=== PATIENT | male | born 1965 | race Caucasian/White ===

== ENCOUNTER 2018-11-16 07:19 | Emergency (ER) | payer MEDICAID ==
[~2018-11-16] VITALS: Ht 188 cm; Wt 98.4 kg
--- NOTE | 2018-11-16 07:26 | NUR ---
BIB SELF FOR "L LEG PAIN x 2 DAYS RED AND SWOLLEN". DENIES TRAUMA/INJURY. TO ER BED 10, HOOKED TO MONITOR, PROVIDED W WARM BLANKET, AWAITING MD DE JESUS.
[2018-11-16 07:53] LABS: BASOPHILS % (AUTO) 0.7 % (0.0-2.0); EOSINOPHILS % (AUTO) 1.9 % (0.0-6.0); HEMATOCRIT 48 % (39-51); HEMOGLOBIN 16.3 g/dL (13.5-17.5); LYMPHOCYTES # (AUTO) 1.4 /CMM (0.8-4.8); LYMPHOCYTES % (AUTO) 25.9 % (20.0-44.0); MEAN CORPUSCULAR HGB CONC 34 g/dl (31.0-36.0); MEAN CORPUSCULAR VOLUME 88 fL (80-96); MONOCYTES # (AUTO) 0.6 /CMM (0.1-1.30); MONOCYTES % (AUTO) 11.4 % (2.0-12.0); NEUTROPHILS # (AUTO) 3.3 /CMM (1.8-8.9); NEUTROPHILS % (AUTO) 60.1 % (43.0-81.0); PLATELET COUNT (AUTO) 184 /CMM (150-450); WHITE BLOOD COUNT (AUTO) 5.5 K/uL (4.3-11.0)
[2018-11-16 08:02] LABS: CALCIUM, SERUM 8.9 mg/dL (8.5-10.1); POTASSIUM 3.9 mmol/L (3.5-5.1)
[2018-11-16 08:08] LABS: BILIRUBIN,DIRECT 0.1 mg/dL (0.0-0.2); BILIRUBIN,TOTAL 0.7 mg/dL (0.2-1.0); TOTAL PROTEIN, SERUM 7.9 g/dL (6.4-8.2)
--- NOTE | 2018-11-16 08:11 | NUR ---
US TECH AT BEDSIDE
[2018-11-16 08:47] VITALS: BP 132/80
--- NOTE | 2018-11-16 08:47 | NUR ---
Patient discharged to home in stable condition. Written and verbal after care instructions given. Patient verbalizes understanding of instruction.
== END 2018-11-16 08:48 | disposition home or self-care (01) ==
LOC: ER 07:23
DX: L03.116 Cellulitis of left lower limb (principal); Z60.2 Problems related to living alone
CPT/HCPCS: 36415; 80048-TC; 80076-TC; 85025-TC; 85730-TC; 93971-TC

== ENCOUNTER 2018-12-24 04:40 | Emergency (ER) | payer SELFPAY ==
[~2018-12-24] VITALS: Ht 188 cm; Wt 96.6 kg
[2018-12-24 04:46] VITALS: BP 132/88
--- NOTE | 2018-12-24 05:02 | NUR ---
PT BIBS. C/O "MARLENA HAD THIS RASH ON MY EYELIDS AND EARS FOR X10 DAYS" -SOB AOX4. AMBULATORY. -DIZZY
== END 2018-12-24 05:13 | disposition home or self-care (01) ==
LOC: ER 04:45
DX: L21.9 Seborrheic dermatitis, unspecified (principal); Z98.890 Other specified postprocedural states; Z60.2 Problems related to living alone

== ENCOUNTER → 2019-02-21 | Emergency (ER) | payer SELFPAY ==
[~2019-02-21] VITALS: Ht 188 cm; Wt 99.8 kg
[~2019-02-21] MED LIST: IBUPROFEN 400 MG TABLET ONE; IBUPROFEN 400 MG TABLET PO ONE
[2019-02-21 06:56] LABS: APPEARANCE,URINE SL CLOUDY (CLEAR); BILIRUBIN,URINE NEGATIVE (NEGATIVE); BLOOD, URINE NEGATIVE Ery/uL (NEGATIVE); COLOR,URINE YELLOW (YELLOW); KETONES,URINE NEGATIVE (NEGATIVE); LEUKOCYTE ESTERASE ,URINE TRACE (NEGATIVE); NITRITE, URINE NEGATIVE (NEGATIVE); PROTEIN,URINE NEGATIVE (NEGATIVE); UGLUCOSE NEGATIVE (NEGATIVE); UROBILINOGEN,URINE 0.2 EU/dL (0.2)
[2019-02-21 07:28] LABS: BACTERIA,URINE Rare /HPF (None Seen); RBC,URINE 0-2 /HPF (0-2); SQUAMOUS EPITHELIAL CELL,UR Rare /HPF (None Seen); WBC,URINE 20-30 /HPF (0-3)
--- NOTE | 2019-02-21 07:33 | NUR ---
PT REC'D TO ER C/O PAIN FLANK 12/29 FOR 2 DAYS UA SENT TO LAB MOTRIN 800 MGPO GIVEN PER MD ORDER AWAITING EVALUATION BY ER PROVIDER.
--- NOTE | 2019-02-21 08:20 | NUR ---
PT STATED FEELING BETTER PT. VERBALIZED UNDERSTANDING OF AFTERCARE INSTRUCTIONS.Patient discharged to home in stable condition. Written and verbal after care instructions given. Patient verbalizes understanding of instruction.
[2019-02-21 08:21] VITALS: BP 148/82
== END | disposition home or self-care (01) ==
LOC: ER 05:06
DX: M54.9 Dorsalgia, unspecified (principal); Z98.890 Other specified postprocedural states; Z60.2 Problems related to living alone
CPT/HCPCS: 81000-TC

== ENCOUNTER 2019-09-15 12:18 | Emergency (ER) | payer MEDICAID ==
[~2019-09-15] VITALS: Ht 188 cm; Wt 95.3 kg
--- NOTE | 2019-09-15 12:27 | NUR ---
BLOODY STOOL THIS MORNING ASSOCIATED WITH DIZZINESS AND SYNCOPAL EPISODE. BRIGHT RED BLOOD AND "A LOT". DENIES RECENT SURGERIES. DENIES SOB, PAIN. APPEARS SLIGHTLY ANXIOUS. AOX4, VSS, RR EVEN AND UNLABORED ON RA. SKIN INTACT. ON MONITOR AND READY FOR EVAL.
[2019-09-15] MEDS ORDERED: IV NS 0.9% 1,000 ML BAG IV ONE (13:30)
[2019-09-15] MEDS ORDERED: PANTOPRAZOLE 40 MG VIAL IV ONE (13:30)
[2019-09-15] MEDS ORDERED: ONDANSETRON HCL/PF 4 MG/2 ML VIAL IVP ONE (13:30)
[2019-09-15] MEDS ORDERED: ONDANSETRON HCL/PF 4 MG/2 ML VIAL ONE (13:33)
[2019-09-15] MEDS ORDERED: PANTOPRAZOLE 40 MG VIAL ONE (13:33)
[2019-09-15 13:44] LABS: BASOPHILS % (AUTO) 0.5 % (0.0-2.0); EOSINOPHILS % (AUTO) 1.6 % (0.0-6.0); HEMATOCRIT 42 % (39-51); HEMOGLOBIN 14.3 g/dL (13.5-17.5); LYMPHOCYTES # (AUTO) 1.1 /CMM (0.8-4.8); LYMPHOCYTES % (AUTO) 21.1 % (20.0-44.0); MEAN CORPUSCULAR HGB CONC 34 g/dl (31.0-36.0); MEAN CORPUSCULAR VOLUME 89 fL (80-96); MONOCYTES # (AUTO) 0.6 /CMM (0.1-1.30); MONOCYTES % (AUTO) 11.6 % (2.0-12.0); NEUTROPHILS # (AUTO) 3.3 /CMM (1.8-8.9); NEUTROPHILS % (AUTO) 65.2 % (43.0-81.0); PLATELET COUNT (AUTO) 166 /CMM (150-450); RED BLOOD CELL COUNT(AUTO) 4.76 MIL/uL (4.5-6.0); WHITE BLOOD COUNT (AUTO) 5.1 K/uL (4.3-11.0)
--- NOTE | 2019-09-15 14:07 | NUR ---
YULI TOMPKINS AT BEDSIDE FOR OCCULT BLOOD SAMPLE
[2019-09-15 14:16] LABS: CREATININE 1.2 mg/dL (0.6-1.3)
[2019-09-15 14:17] LABS: CALCIUM, SERUM 8.7 mg/dL (8.5-10.1); POTASSIUM 4.3 mmol/L (3.5-5.1)
[2019-09-15 14:20] LABS: ALBUMIN 3.6 g/dL (3.4-5.0); BILIRUBIN,DIRECT 0.1 mg/dL (0.0-0.2); BILIRUBIN,TOTAL 0.4 mg/dL (0.2-1.0); TOTAL PROTEIN, SERUM 6.6 g/dL (6.4-8.2)
[2019-09-15 14:33] VITALS: BP 126/76
--- NOTE | 2019-09-15 14:34 | NUR ---
IV ACCESS OBTAINED. MEDS GIVEN AND IVF INFUSING. PT DELILAH WELL.
[2019-09-15 14:37] LABS: OCCULT BLOOD STOOL POSITIVE (NEGATIVE)
[2019-09-15] MEDS ORDERED: IOHEXOL-300 100 ML VIAL IV ONE (14:38)
--- NOTE | 2019-09-15 16:00 | NUR ---
Patient does not wish to proceed with medical care recommended by [facility] [employer] ATTENDANT. Patient given information related to possible complications, up to and including , which could occur as a result of leaving the hospital at this time. Patient verbalizes understanding of risks involved due to leaving against medical advice. Patient has signed AMA form.
--- NOTE | 2019-09-15 16:05 | NUR ---
IV removed. Catheter intact and site benign. Pressure and 4x4 applied to site. No bleeding noted.
== END 2019-09-15 16:05 | disposition left against medical advice (07) ==
LOC: ER 12:25
DX: K92.2 Gastrointestinal hemorrhage, unspecified (principal); R55 Syncope and collapse; Z98.890 Other specified postprocedural states; Z60.2 Problems related to living alone
CPT/HCPCS: 36415; 71045; 74177; 80048; 80076; 82272; 83690; 85025; 85730; 86850; 93005; 96361; 96374; 96375; 99285; C9113; J2405; J7030; Q9967